=== PATIENT | male | born 1985 | race African-American/Black ===

== ENCOUNTER 2016-10-21 09:41 | Emergency (ER) | payer OTHER ==
[~2016-10-21] VITALS: Ht 188 cm; Wt 68.0 kg
[2016-10-21] MEDS ORDERED: Bacitracin Oint UD TOPIC ONE (10:00)
[2016-10-21] MEDS ORDERED: Tetanus/Diptheria/Pertussis Vaccine 0.5ml Syr IM ONE (10:00)
--- NOTE | 2016-10-21 10:00 | Emergency Room Report ---
History of Present Illness General Chief Complaint: Upper Extremity Injury Source: Patient Present Illness HPI Patient 31-year-old male who presented after increased right upper extremity pain. Patient had reportedly punched a wall approximately 1 hour prior to arrival. Patient had reportedly broke a mirror. The patient reported having some pain to the hand and fingers. The patient had injured his hand previously. Patient is right-hand dominant. Patient denies any numbness reported having pain to the fourth and fifth metacarpal Allergies: Coded Allergies: No Known Allergies (Unverified , 10/21/16) Patient History Past Medical History: see triage record Reviewed Nursing Documentation: PMH: Agreed, PSxH: Agreed Nursing Documentation-PMH Past Medical History: No Stated History Review of Systems All Other Systems: negative except mentioned in HPI Physical Exam Vital Signs Date Time Temp Pulse Resp B/P Pulse Ox O2 Delivery O2 Flow Rate FiO2 10/21/16 09:45 97.9 94 16 122/74 97 Room Air General Appearance: well appearing, no apparent distress, alert, GCS 15 Head: normocephalic, atraumatic ENT: hearing grossly normal, normal voice Neck: full range of motion, supple Respiratory: no respiratory distress, speaking full sentences Gastrointestinal: normal inspection Musculoskeletal: no calf tenderness, swelling - 4th and 5th metacarpal head, tenderness Neurologic: normal inspection, alert, oriented x3, responsive, chief of pediatric urology III-XII nml as tested, normal gait Psychiatric: mood/affect normal Skin: no rash, other - abrasions to hand Medical Decision Making Diagnostic Impression: Primary Impression: Hand contusion Additional Impression: Multiple abrasions ER Course Patient presented for for hand pain. Differential diagnosis included was not limited to fracture, dislocation, sprain, contusion among others. X-ray imaging of the right hand 3 views interpreted by me showed normal bony alignment without evident fracture. The patient was given pain medication. He is placed in an Lior wrap He was given tetanus vaccine. Patient was given pain medications.Patient is advised followup with primary care physician in the next 2-3 days for reexamination. Last Vital Signs Date Time Temp Pulse Resp B/P Pulse Ox O2 Delivery O2 Flow Rate FiO2 10/21/16 09:45 97.9 94 16 122/74 97 Room Air Status: improved Disposition: HOME, SELF-CARE Condition: Stable Michael Osborne Oct 21, 2016 10:00
[2016-10-21 10:18] VITALS: BP 122/74
[2016-10-21] MEDS ORDERED: IBUPROFEN600 MG ORAL (10:29)
[2016-10-21 10:56] VITALS: BP 122/74
[2016-10-21] MEDS ORDERED: Haloperidol Decanoate 50mg Inj IM ONE (11:00)
--- NOTE | 2016-10-21 12:52 | Diagnostic Imaging Report ---
Indication: PAIN Technique: 3 views right hand Comparison: none Findings: No acute fractures. No dislocations. Joint spaces are preserved. Impression: Negative
== END 2016-10-21 11:02 | disposition home or self-care (01) ==
LOC: EMR 10:22
DX: S60.221A Contusion of right hand, initial encounter (principal); W22.8XXA Striking against or struck by other objects, initial encounter; Y93.9 Activity, unspecified; Y92.9 Unspecified place or not applicable; S60.511A Abrasion of right hand, initial encounter; Z23 Encounter for immunization
CPT/HCPCS: 73130; 90471; 90715; 96372; 99283; J1631